=== PATIENT | male | born 1990 | race Two or more races ===

== ENCOUNTER 2018-06-10 15:15 | Emergency (ER) | payer SELFPAY ==
[~2018-06-10] VITALS: Ht 182.9 cm; Wt 79.4 kg
[2018-06-10 15:47] VITALS: BP 154/97
[2018-06-10] MEDS ORDERED: SODIUM CHLORIDE 0.9% 1,000 ML IV ONE ×2 (15:56)
[2018-06-10] MEDS ORDERED: LORazepam 2MG/ML-1ML VIAL IV ONE (16:00)
[2018-06-10 16:28] LABS: Alcohol, Urine < 3.0 mg/dL (0-5); Amphetamine Screen, Urine POSITIVE (NEGATIVE); Barbiturate Scree,Urine NEGATIVE (NEGATIVE); Benzodiazephine Screen, Urine NEGATIVE (NEGATIVE); Cannabinoid Screen, Urine NEGATIVE (NEGATIVE); Cocaine Screen, Urine NEGATIVE (NEGATIVE); Opiate Scree,Urine NEGATIVE (NEGATIVE); Phencyclidine Screen, Urine NEGATIVE (NEGATIVE)
[2018-06-10 17:00] LABS: Basophils # (auto) 0 uL; Basophils % (auto) 0.4 % (0.0-2.0); Eosinophils # (auto) 0.1 uL; Eosinophils % (auto) 1.2 % (0.0-7.0); Hematocrit 48.6 % (41.0-53.0); Hemoglobin 16.5 g/dL (13.5-17.5); Lymphocytes # (auto) 1.5 uL; Lymphocytes % (auto) 17.6 % (10.0-50.0); Mean Corpuscular Hgb Conc. 33.9 g/dL (32.0-36.0); Mean Corpuscular Volume 88.5 fL (80.0-100.0); Monocytes # (auto) 0.7 uL; Neutrophils # (auto) 6.2 uL; Neutrophils % (auto) 72.8 % (37.0-80.0); Platelet Count (auto) 256 10^3/uL (140-450); Red Cell Distribution Width 12.8 % (11.8-14.3); White Blood Cell 8.6 10^3/uL (4.4-10.8)
[2018-06-10 17:15] LABS: Albumin 4.6 g/dL (3.4-5.0); Anion Gap 6 (5-15); Blood Urea Nitrogen 9 mg/dL (7-18); Calcium 8.8 mg/dL (8.5-10.1); Carbon Dioxide 25 mmol/L (21-32); Chloride 106 mmol/L (98-107); Glucose 109 mg/dL (74-106); Potassium 3.4 mmol/L (3.5-5.1); Sodium 137 mmol/L (136-145)
[2018-06-10 17:21] LABS: Alanine Aminotransferase 20 U/L (16-61); Alkaline Phosphatase 47 U/L (45-117); Aspartate Aminotransferase 11 U/L (15-37); BUN/Creatinine Ratio 8.4; Bilirubin, Total 1.3 mg/dL (0.2-1.0); GFR African American 106 mL/min; GFR Non-African American 87 mL/min; Total Protein 7.9 g/dL (6.4-8.2)
== END 2018-06-10 18:36 | disposition home or self-care (01) ==
LOC: EDBD 15:15 → ER 15:15
DX: F41.9 Anxiety disorder, unspecified (principal); F32.9 Major depressive disorder, single episode, unspecified; F17.210 Nicotine dependence, cigarettes, uncomplicated; F12.10 Cannabis abuse, uncomplicated; F15.10 Other stimulant abuse, uncomplicated
CPT/HCPCS: 36415; 80053; 80307; 84484; 85025; 93005; 94761; 96374; 99285; J2060

== ENCOUNTER 2018-06-10 18:57 | Emergency (ER) | payer SELFPAY ==
[~2018-06-10] VITALS: Ht 188 cm; Wt 79.4 kg
[2018-06-10 19:29] VITALS: BP 143/67
== END 2018-06-10 20:56 | disposition home or self-care (01) ==
LOC: EDBD 18:57 → ER 19:02
DX: Z04.6 Encounter for general psychiatric examination, requested by authority (principal); F41.9 Anxiety disorder, unspecified; F17.210 Nicotine dependence, cigarettes, uncomplicated; F12.10 Cannabis abuse, uncomplicated; F15.10 Other stimulant abuse, uncomplicated
CPT/HCPCS: 71045